=== PATIENT | male | born 1960 | race Caucasian/White ===

== ENCOUNTER 2025-07-03 10:27 | Outpatient (CLI) | payer OTHER | END 2025-07-03 10:28 | disposition home or self-care (01) | LOC: BICCT 10:27 | PROVIDERS: ATTEND Physician Assistant | DX: Z13.6 Encounter for screening for cardiovascular disorders (principal); Z82.49 Family history of ischemic heart disease and other diseases of the circulatory system; I70.90 Unspecified atherosclerosis | CPT/HCPCS: 75571 ==